=== PATIENT | female | born 1940 | race Caucasian/White ===

== ENCOUNTER 2020-06-22 12:47 | Observation (INO) | payer MEDICARE ==
[~2020-06-22] VITALS: Ht 149.9 cm; Wt 51.0 kg
--- NOTE | 2020-06-22 12:50 | NUR ---
PATIENT TO ROOM WITH A STEADY GAIT, REFUSING WHEELCHAIR.
[2020-06-22 13:31] LABS: HEMATOCRIT 40.1 % (37.0-47.0); HEMOGLOBIN 13.6 g/dl (12.0-16.0); IMMATURE GRANULOCYTES 0.6 % (0.0-5.0); MEAN CELL VOLUME 89.9 fL CALC (80.0-100.0); MEAN CORPUSCULAR HGB 30.5 pG CALC (26.0-32.0); MEAN CORPUSCULAR HGB CONC 33.9 g/dL CAL (32.0-36.0); NEUT# 4.19 thou/uL (2.00-7.15); RED BLOOD COUNT 4.46 mill/uL (4.20-5.60); RED CELL DISTRI WIDTH 12.4 % (11.5-15.5)
--- NOTE | 2020-06-22 13:45 | NUR ---
patient settled,spouse at bedside.
--- NOTE | 2020-06-22 13:55 | NUR ---
HR NOTED AT 42,EKG ORDERED,, TO BEDSIDE.
[2020-06-22 13:58] LABS: ALBUMIN 4.7 g/dL (3.2-5.0); ALKALINE PHOSPHATASE 88 u/l (38-126); ANION GAP 12 (6-22 (CALC)); BILIRUBIN, TOTAL 0.4 mg/dL (0.0-1.4); BUN 18 mg/dL (8-23); BUN/CREATININE RATIO 22 (12-20 (CALC)); CARBON DIOXIDE 25 mmol/l (22-30); CHLORIDE 105 mmol/l (95-108); CREATININE 0.8 mg/dL (0.5-1.0); GFR > 60 ML/MIN (>=60 (CALC)); GFR FOR AFR.AMER. > 60 ML/MIN (>=60 (CALC)); POTASSIUM 3.3 mmol/l (3.5-5.1); SGOT/AST 95 u/l (9-36); SODIUM 139 mmol/l (137-146); TOTAL PROTEIN 8.3 g/dL (6.3-8.2)
--- NOTE | 2020-06-22 14:00 | NUR ---
PATIENT RATE WNL, DENIES CHEST PAIN OR LIGHTHEADEDNESS. CARDIAC MONITORING CONTINUES. CALL CALDWELL IN REACH. SPOUSE AT BEDSIDE
[2020-06-22 14:39] LABS: MAGNESIUM 1.9 mg/dL (1.6-2.3)
--- NOTE | 2020-06-22 15:22 | NUR ---
PATIENT UP TO BR. FEELING BETTER.
[2020-06-22 15:36] LABS: URINE BILIRUBIN - DIPSTICK NEGATIVE (NEGATIVE); URINE BLOOD DIPSTICK NEGATIVE (NEGATIVE); URINE COLOR YELLOW; URINE GLUCOSE - DIPSTICK NEGATIVE (NEGATIVE); URINE KETONE NEGATIVE (NEGATIVE); URINE LEUK ESTERASE NEGATIVE (NEGATIVE); URINE NITRITE - DIPSTICK NEGATIVE (Negative); URINE PROTEIN - DIPSTICK NEGATIVE (NEG-TRACE); URINE UROBILINOGEN - DIPSTICK 0.2 E.U./dL (0.2)
--- NOTE | 2020-06-22 16:39 | NUR ---
WILFREDOMANUFACTURING MAINTENANCE TECHNICIAN AT BEDSIDE TO EVALUATE.
--- NOTE | 2020-06-22 17:45 | NUR ---
ASSISTED TO BR. RETURNED TO ROOM. cALL CALDWELL IN PLACE.
--- NOTE | 2020-06-22 19:19 | NUR ---
REPORT GIVEN TO DARIUS ON [employer].
--- NOTE | 2020-06-22 19:29 | NUR ---
Admission Note Report Given to: KAROLINA Transported by: X Wheelchair Stretcher Transported with: X Nurse Transporter X Patent IV O2 X Furnace Combustion Tester Location: ICU X MS2
[2020-06-22 19:30] VITALS: BP 153/89
--- NOTE | 2020-06-22 20:00 | NUR ---
PT ARRIVE ON THE FLOOR ON TELE. NO COMPLAINT OF PAIN. ABLE TO ANSWER QUESTIONS. STATS WITHIN RANGE.IV SITE IN LEFT AC AND FLUSH PATENT. CALL LIGHT AND TABLE WITHIN REACH.
[2020-06-22 23:30] VITALS: BP 134/74
--- NOTE | 2020-06-23 02:47 | NUR ---
PT IN ROOM SLEEPING. LIGHTS OFF. IV SITES CDI. CALL LIGHT WITHIN REACH. NO COMPLAINT OF PAIN. TELE STILL ON.
[2020-06-23 04:25] VITALS: BP 129/66
[2020-06-23 06:38] LABS: HEMATOCRIT 39.2 % (37.0-47.0); HEMOGLOBIN 13.2 g/dl (12.0-16.0); IMMATURE GRANULOCYTES 0.3 % (0.0-5.0); MEAN CELL VOLUME 89.7 fL CALC (80.0-100.0); MEAN CORPUSCULAR HGB 30.2 pG CALC (26.0-32.0); MEAN CORPUSCULAR HGB CONC 33.7 g/dL CAL (32.0-36.0); NEUT# 3.51 thou/uL (2.00-7.15); RED BLOOD COUNT 4.37 mill/uL (4.20-5.60); RED CELL DISTRI WIDTH 12.3 % (11.5-15.5)
[2020-06-23 06:53] LABS: ALKALINE PHOSPHATASE 78 u/l (38-126); BUN 18 mg/dL (8-23); BUN/CREATININE RATIO 24 (12-20 (CALC)); CALCULATED LDLCHOLESTEROL 141 mg/dL (62-129 (CALC)); CARBON DIOXIDE 24 mmol/l (22-30); CHLORIDE 107 mmol/l (95-108); CREATININE 0.7 mg/dL (0.5-1.0); GFR > 60 ML/MIN (>=60 (CALC)); GFR FOR AFR.AMER. > 60 ML/MIN (>=60 (CALC)); HDL CHOLESTEROL 56 mg/dL (>=40); SGOT/AST 50 u/l (9-36); SODIUM 137 mmol/l (137-146); TOTAL CHOLESTEROL 228 mg/dl (0-199); TOTAL PROTEIN 7.1 g/dL (6.3-8.2); TOTAL TRIGLYCERIDES 151 mg/dl (30-149); VLDL CHOLESTROL 30 mg/dl (0-48 (CALC))
[2020-06-23 06:56] LABS: ANION GAP 10 (6-22 (CALC)); BILIRUBIN, TOTAL 0.7 mg/dL (0.0-1.4); POTASSIUM 4.4 mmol/l (3.5-5.1)
[2020-06-23 08:45] VITALS: BP 164/83
--- NOTE | 2020-06-23 08:45 | NUR ---
PT SITTING IN BED. A&O X3. NO DISTRESS NOTED. PT DENIES ANY CP. PT HYPERTENSIVE, MORNING DOSE OF LOPRESSOR 50 MG GIVEN. PT EDUCATED ON MEDICATION. ASSESSMENT COMPLETED. DISCUSSED POC. CALL LIGHT LEFT WITHIN REACH.
[2020-06-23 10:50] VITALS: BP 113/73
[2020-06-23] MEDS ORDERED: NORVASC5 M1 PO (11:00)
[2020-06-23] MEDS ORDERED: TENORMIN25 M1 PO (11:01)
[2020-06-23] MEDS ORDERED: LOPRESSOR 550 MG/TAB PO (11:35)
--- NOTE | 2020-06-23 13:46 | NUR ---
D/C INSTRUCTIONS GVEN TO PT. IV INTACT UPON REMOVAL.
--- NOTE | 2020-06-23 13:53 | NUR ---
Discharge instructions given. Patient verbalizes understanding of same. Discharged in stable condition ambulatory accompanied by this investigative writer. New medication education and medication changes given, pt verbalized understanding. Encouraged pt to return to ed for new or worsening symptoms. All belongings sent with pt.
== END 2020-06-23 13:53 | disposition home or self-care (01) ==
LOC: ED 12:47 → ED-I 13:59 → ED 13:59 → ED-I 14:30 → ED 14:41 → ED-I 14:42 → MS2 18:33
PROVIDERS: Family Medicine; Nurse Practitioner; ADMIT Internal Medicine; ATTEND Internal Medicine
DX: I49.3 Ventricular premature depolarization (principal); I49.1 Atrial premature depolarization; E87.6 Hypokalemia; I10 Essential (primary) hypertension; R91.8 Other nonspecific abnormal finding of lung field; T36.96XA Underdosing of unspecified systemic antibiotic, initial encounter; Z91.128 Patient's intentional underdosing of medication regimen for other reason; Z20.822 Contact with and (suspected) exposure to COVID-19
CPT/HCPCS: J1650